=== PATIENT | female | born 1990 | race Caucasian/White ===

== ENCOUNTER 2016-12-19 13:54 | Observation (INO) ==
--- NOTE | 2016-12-19 14:35 | Discharge Summary ---
Date of Encounter: 12/19/16 Time of Encounter: 14:40 - Discharge Diagnosis (1) Back pain affecting in second trimester Priority: Primary Status: Acute Comments: Stretches discussed with patient. [id number] Tylenol for pain. - Discharge Medications Home Medications: Promethazine [Phenergan] 25 mg PO Q8HR PRN #15 tablet 06/29/16 [Rx] Vit Calc,Iron,Folic [ Vitamins] 1 tab PO DAILY 12/19/16 [ History] Allergies/Adverse Reactions: Allergies No Known Allergies Allergy (Verified 12/19/16 14:15) Data - Impressions female presenting with low back pain that radiates down her left leg. Also complaining of left inguinal pain. I do not appreciate any hernias to her left inguinal area. There is no deformity or swelling to her back. She does have point tenderness over her piriformis. The patient has sciatic inflammation. I discussed at length stretches that she can do to help relieve this pain. She has no fevers or calf pain. She states she did have this pain when she was with one of her other children. There is no swelling or deformity to her extremities. Patient cervix is closed on visual exam. She does have normal physiologic discharge at this time. Her nitrazine test was negative. She denies any SROM. She does state she has a normal vaginal discharge. She has no urinary symptoms. Patient denies any trauma to her back. She states her pain has been present for about a month. She cannot remember a specific onset of the pain. - Additional Comments ROS: All systems negative except for stated Patient denies any headache syncope or blurry vision. She denies any shortness of breath or chest pain. She denies any nausea vomiting or diarrhea. She denies any hematochezia or melena. She reports left inguinal pain as well as low back pain that radiates down her left leg. She denies any numbness tingling or swelling to her extremities. She denies any trauma. Date of admission: 12/19/16 13:54 - Patient Status Disposition: Home, Self-Care Condition: Good Overall status at discharge: patient is back to baseline - Discharge Instructions Instructions: Piriformis Syndrome (GEN) Additional Instructions: Please use the stretches that we discussed to help with your lower back pain. He continues Tylenol [id number] as prescribed on the bottle. Please follow-up with your OB at her regular appointment. If you have any questions or concerns or if symptoms return please go to the emergency room. 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 Attestation: Total time spent providing and/or coordinating discharge services: Exam - Constitutional General appearance IM: A&O X 3 - Respiratory Respiratory exam: Present: CTAB - Cardiovascular Cardiovascular exam IM: Present: RRR - GI/Abdominal GI/Abdominal exam IM: normal bowel sounds, soft, no peritoneal signs Incision: normal - Uterine Tone: Firm - Extremities Exam Extremities exam IM: Present: full ROM, normal capillary refill, radial pulses palpable and symetrical - Neurological Exam Neurological exam: alert, oriented X3 - VTE Reasons for not Prescribing Prophylaxis: Treatment not Indicated - Low risk for VTE
[2016-12-19 14:37] LABS: Bilirubin,Urine Negative (Negative); Blood,Urine Negative (Negative); Clarity,Urine Cloudy (Clear); Color,Urine Yellow (Yellow); Glucose,Urine (UA) Normal (Normal); Ketones,Urine Negative (Negative); Leukocyte Esterase,Urine Small (Negative); Nitrite,Urine Negative (Negative); Protein,Urine Negative (Neg-Trace); Specific Gravity,Urine 1.008 (1.010-1.025); Urobilinogen,Urine Normal (Normal)
[2016-12-19 14:40] LABS: Bacteria,Urine Many per hpf (None-Few); Hyaline Casts,Urine None Seen per lpf (None-Few); RBC,Urine 0-3 per hpf (0-3); Squamous Epithelial Cell,Urine Many per lpf (None-Few)
== END 2016-12-19 15:05 | disposition home or self-care (01) ==
LOC: 1NENULAB
PROVIDERS: ADMIT Obstetrics & Gynecology; ATTEND Obstetrics & Gynecology

== ENCOUNTER 2017-01-05 15:42 | Observation (INO) ==
[2017-01-05 16:44] LABS: Basophils % 0.2 %; Eosinophils % 0.2 %; Hematocrit 28.4 % (35.3-44.9); Hemoglobin 9.4 g/dL (11.5-15.4); Immature Granulocytes % 1.3 % (0-4); Lymphocytes # 1.6 K/mcL (0.6-4.6); Lymphocytes % 14.6 %; Mean Corpuscular HGB Conc 33.1 g/dL (31.6-35.5); Mean Corpuscular Volume 84.5 fL (83.0-100.0); Mean Platelet Volume 9.4 fL (9.4-12.4); Monocytes # 0.3 K/mcL (0.0-1.3); Monocytes % 2.8 %; Neutrophils # 8.7 K/mcL (1.6-8.9); Platelet Count 363 K/mcL (140-400); Red Blood Count 3.36 M/mcL (3.82-4.97); Red Cell Distribution Width 12.9 % (11.5-14.5); Segmented Neutrophils % 80.9 %
--- NOTE | 2017-01-05 16:44 | OB/GYN Progress Note ---
Date of Encounter: 01/05/17 Time of Encounter: 16:37 - Assessment and Plan (1) Headache in Current Visit: Yes Status: Acute normotensive,2/4 DTR IVF Tylenol prn PIH labs Urine lab continuous monitoring pt monitoring supportive care re-evaluate in 1 hr Qualifiers: Trimester: second trimester Qualified Code(s): O26.892 - Other specified related conditions, second trimester; R51 - Headache (2) 28 weeks gestation of Current Visit: Yes Status: Acute continuous monitoring pt monitoring supportive care (3) Round ligament pain Current Visit: Yes Status: Acute recommend support belt (4) Back pain affecting Current Visit: Yes Status: Acute recommend support belt recommend continue with stretches Subjective - Subjective Principal diagnosis: headache Interval history: 26 yo F at 28.6weeks ARLETTE 03/24/17. Clemente Lockhart pt. Presents with c/o headache. Fronto-occipital aching headache started monday evening. Pt states headache is an on and off ache that is usually worse in the morning. Headache has not been relieved by Tylenol and was associated with nausea without vomiting this morning. Pt also c/o aching lumbar back pain that has been constant throughout . Pt denies dizziness, change in vision, CP, SOB, palpitation, denies V/D/C. Pt denies loss of fluids, or vaginal bleeding. Antepartum ROS: other (headache) Objective - Exam FHR: auscultation normal FHR comments: 150s Abdomen: Present: normal appearance, soft, gravid. Absent: distention, tenderness Uterus: Present: normal
[2017-01-05 16:54] LABS: Creatinine,Urine 38 mg/dL; Protein/Creatinine Ratio,Urine 0.18 mg/mg (0-0.20)
[2017-01-05 16:57] LABS: Alanine Aminotransferase 7 Units/L (0-55); Aspartate Amino Transferase 17 Units/L (5-34); BUN/Creatinine Ratio 10 (6-26); Blood Urea Nitrogen 6 mg/dL (7-20); Lactate Dehydrogenase 352 Units/L (159-327); Uric Acid 3.3 mg/dL (2.6-6.0); eGFR For African Americans > 60 (> 60); eGFR For Non-African Americans > 60 (> 60)
[2017-01-05] MEDS ORDERED: Acetaminophen 325 MG TABLET PO PRN (17:39)
[2017-01-05] MEDS ORDERED: Ringers Solution, Lactated 500 ML IVC ONE ×2 (17:47→18:02)
[2017-01-05] MEDS ORDERED: Ringers Solution, Lactated 1,000 ML ONE (17:57)
[2017-01-05] MEDS ORDERED: Ringers Solution, Lactated 1,000 ML IVC SCH (18:00)
--- NOTE | 2017-01-05 19:15 | Discharge Summary ---
Date of Encounter: 01/05/17 Time of Encounter: 19:10 - Discharge Diagnosis (1) Headache in Priority: Primary Status: Acute Comments: -Improved with fluids. -Patient states that her intake mostly contains soda -Blood pressure improved 122/64 and baby HR 152 -Patient feels comfortable going home. Plan -Discharge home. Recommend Tylenol -Counseled patient on decreasing/eliminating soda and drinking more water Qualifiers: Trimester: second trimester Qualified Code(s): O26.892 - Other specified related conditions, second trimester; R51 - Headache - Discharge Medications Home Medications: Promethazine [Phenergan] 25 mg PO Q8HR PRN #15 tablet 06/29/16 [Rx] Vit Calc,Iron,Folic [ Vitamins] 1 tab PO DAILY 12/19/16 [ History] Allergies/Adverse Reactions: Allergies No Known Allergies Allergy (Verified 12/19/16 14:15) Data Procedures and tests throughout hospitalization: Laboratory Tests 01/05/17 01/05/17 01/05/17 16:30 16:30 16:35 WBC 10.7 RBC 3.36 L Hgb 9.4 L Hct 28.4 L MCV 84.5 MCH 28.0 MCHC 33.1 RDW 12.9 Plt Count 363 MPV 9.4 Immature Gran % 1.3 Seg Neutrophils % 80.9 Lymphocytes % 14.6 Monocytes % 2.8 Eosinophils % 0.2 Basophils % 0.2 Neutrophils # 8.7 Lymphocytes # 1.6 Monocytes # 0.3 Eosinophils # 0.0 Basophils # 0.0 BUN 6 L Creatinine 0.61 Est GFR ( Amer) > 60 Est GFR (Non-Af Amer) > 60 BUN/Creatinine Ratio 10 Uric Acid 3.3 AST 17 ALT 7 Lactate Dehydrogenase 352 H Urine Creatinine 38 Protein/Creatinin Ratio 0.18 Urine Total Protein < 7 Labs on day of discharge: Labs from last 24 hours 01/05/17 01/05/17 01/05/17 16:35 16:30 16:30 WBC 10.7 RBC 3.36 L Hgb 9.4 L Hct 28.4 L MCV 84.5 MCH 28.0 MCHC 33.1 RDW 12.9 Plt Count 363 MPV 9.4 Immature Gran % 1.3 Seg Neutrophils % 80.9 Lymphocytes % 14.6 Monocytes % 2.8 Eosinophils % 0.2 Basophils % 0.2 Neutrophils # 8.7 Lymphocytes # 1.6 Monocytes # 0.3 Eosinophils # 0.0 Basophils # 0.0 BUN 6 L Creatinine 0.61 Est GFR ( Amer) > 60 Est GFR (Non-Af Amer) > 60 BUN/Creatinine Ratio 10 Uric Acid 3.3 AST 17 ALT 7 Lactate Dehydrogenase 352 H Urine Creatinine 38 Protein/Creatinin Ratio 0.18 Urine Total Protein < 7 - Impressions . LDH mildly elevated, but non concerning. other labs WNL Date of admission: 01/05/17 15:42 Primary care physician: Argelia Gore CNP Discharging clinician: Froilan Estrada Anticipated date of discharge: 01/05/17 - Patient Status Disposition: Home, Self-Care Condition: Good Functional capacity at discharge: independent ambulation Overall status at discharge: patient is progressing back to baseline (Still has mild headache. Improved with fluids. 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 This is normal.) * Lower abdominal cramping or backache that is premenstrual-like feeling. * More than 6 contractions in one hour. * Burning during urination, having to urinate more frequently or pain in your mid-back. * A change in the baby's activity. This could be an increase or decrease in activity. * Severe headache which does not go away with tylenol. * Sudden swelling in the face, hands, arms and/or legs. * Upper abdominal pain - sometimes associated with heartburn or nausea and is not relieved by Maalox, Mylanta or Tums. * Dizziness or blurred vision or visual disturbances (seeing stars/lights). * Kick Counts One hour after a meal, lay down on one side in a quiet place. Count the number of tessie the baby moves during an hour. If less than 6 movements, notify your physician. Diet: *Force fluids - 8-10 tall glasses of fluid per day. May include popsicles and jello. *Limit caffeine - this includes chocolate, coffee, tea, any soft drink containing such as all alix, Roland Yellow and Mountain Dew Follow up with next scheduled appointment. 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 Given fluids and labs drawn. Labs WNL. Her symptoms improved, babies HR improved. Discharged home. Time Attestation: Total time spent providing and/or coordinating discharge services: Time Spent: Less than 30 minutes Exam - Constitutional General appearance IM: A&O X 3 - Respiratory Respiratory exam: Absent: respiratory distress - Cardiovascular Cardiovascular exam IM: Absent: irregular rhythm - GI/Abdominal GI/Abdominal exam IM: soft, no peritoneal signs - Uterine Tone: Firm - Extremities Exam Extremities exam IM: Absent: calf tenderness - Neurological Exam Neurological exam: oriented X3 - Attending Attestation tor garcia md facog
== END 2017-01-05 19:27 | disposition home or self-care (01) ==
LOC: 1NENULAB
PROVIDERS: ADMIT Obstetrics & Gynecology; ATTEND Obstetrics & Gynecology

== ENCOUNTER 2017-01-09 15:46 | Observation (INO) ==
[2017-01-09 16:26] LABS: Bilirubin,Urine Negative (Negative); Blood,Urine Negative (Negative); Clarity,Urine Cloudy (Clear); Color,Urine Yellow (Yellow); Glucose,Urine (UA) Normal (Normal); Ketones,Urine Negative (Negative); Leukocyte Esterase,Urine Moderate (Negative); Nitrite,Urine Negative (Negative); Protein,Urine Negative (Neg-Trace); Specific Gravity,Urine 1.008 (1.010-1.025); Urobilinogen,Urine Normal (Normal)
[2017-01-09 16:28] LABS: Bacteria,Urine Many per hpf (None-Few); Hyaline Casts,Urine None Seen per lpf (None-Few); RBC,Urine 0-3 per hpf (0-3); Squamous Epithelial Cell,Urine Many per lpf (None-Few)
--- NOTE | 2017-01-09 16:51 | OB/GYN Progress Note ---
Date of Encounter: 01/09/17 Time of Encounter: 16:30 - Assessment and Plan (1) Headache Current Visit: Yes Status: Acute -Headache for the last 2 weeks. No changes. Denies blurry vision -Tylenol doesn't help. -Blood pressure now 120's/60's. Baby is reactive with appropriate accelerations. No protein in the urine. Labs WNL -Doubt preeclampsia, infectious cause, induced HTN. -Patient mostly concerned about baby and would like to go home once baby has been evaluated. Plan -PIH Labs. -Continue to monitor baby and mother-BP, HR, Temp. -Consider giving bolus of LR -Will not give narcotics, if patient will take Tylenol, will prescribe. Qualifiers: Headache type: unspecified Headache chronicity pattern: unspecified pattern Intractability: intractable Qualified Code(s): R51 - Headache (2) Edema Current Visit: Yes Status: Acute -No concerning edema. Patient's legs and feet appear to be of normal size. Qualifiers: Edema type: unspecified Qualified Code(s): R60.9 - Edema, unspecified (3) 29 weeks gestation of Current Visit: Yes Status: Acute -Patient of Dr. Lockhart Subjective - Subjective Principal diagnosis: headache and bilateral leg swelling Interval history: 26F, , 29w4d, PMH preeclampsia presents with Headache and bilateral lower leg swelling. Patient seen for headache and high HR. Headache for the last 2 weeks. Described as diffused. Nothing makes it worse or better. Has not changed in characteristic nor quality. Is retractable, non debilitating. Denies blurry vision, neck pain, fever. Is uptodate on her vaccines. Concerning her leg swelling, patient states that began a few days ago. Feels like the bottom of her feet are sore. Denies long travel, trauma, previous history of clots.Denies abdominal pain, CP, SOB, urinary complaints. Denies taking medication, smoking, drinking, drug use. She has decreased her activity lately because of leg swelling. Her biggest concern is her baby, she would like to make sure he is okay. She does feel movements that are unchanged. Patient states that once baby has been evaluated, she would like to go home. Antepartum ROS: new complaints, movement normal, no vaginal bleeding, no contractions Objective - Vital Signs Vital Signs: Intake and Output 01/09/17 01/09/17 01/09/17 07:59 15:59 23:59 Other: Weight 80.2 kg 80.2 kg Patient Weight 01/09/17 23:59 Weight 80.2 kg - Exam FHR: auscultation normal Auscultation: bilateral: normal Abdomen: Present: normal appearance, soft, gravid. Absent: distention, tenderness Uterus: Present: normal, firm Comments: Mild pain with palpation of head throughout. heart RRR, no murmurs. Lungs CTAB. Non surgical abdomen. Arms mild non pitting edema Legs: No erythema, bruising. Legs are equal in size, negative quesada's sign. Dorsalis, tibial, poplitieal pulse equal. Non pitting edema. Legs do not appear grossly swollen. - Labs Labs: Abnormal lab results Urine Clarity Cloudy (Clear) A 01/09/17 16:18 Ur Specific [place] 1.008 (1.010-1.025) L 01/09/17 16:18 Ur Leukocyte Esterase Moderate (Negative) H 01/09/17 16:18 Urine Microscopic WBC 5-15 per hpf (0-3) H 01/09/17 16:18 Ur Squamous Epith Cells Many per lpf (None-Few) H 01/09/17 16:18 Urine Bacteria Many per hpf (None-Few) H 01/09/17 16:18 Ur Culture Indicated? YES (NO) A 01/09/17 16:18
[2017-01-09] MEDS ORDERED: Ringers Solution, Lactated 1,000 ML IVC ONE (18:23)
[2017-01-09 18:58] LABS: Basophils % 0.4 %; Eosinophils # 0.1 K/mcL (0.0-0.6); Eosinophils % 0.5 %; Hematocrit 27.6 % (35.3-44.9); Hemoglobin 9.2 g/dL (11.5-15.4); Immature Granulocytes % 1.3 % (0-4); Mean Corpuscular HGB Conc 33.3 g/dL (31.6-35.5); Mean Corpuscular Hemoglobin 28.2 pg (28.0-33.3); Mean Corpuscular Volume 84.7 fL (83.0-100.0); Mean Platelet Volume 9.6 fL (9.4-12.4); Monocytes # 0.5 K/mcL (0.0-1.3); Neutrophils # 6.8 K/mcL (1.6-8.9); Platelet Count 367 K/mcL (140-400); Red Blood Count 3.26 M/mcL (3.82-4.97); Red Cell Distribution Width 12.9 % (11.5-14.5); Segmented Neutrophils % 71.8 %
[2017-01-09 19:12] LABS: Alanine Aminotransferase 10 Units/L (0-55); Aspartate Amino Transferase 18 Units/L (5-34); BUN/Creatinine Ratio 10 (6-26); Blood Urea Nitrogen 6 mg/dL (7-20); Lactate Dehydrogenase 172 Units/L (159-327); eGFR For African Americans > 60 (> 60); eGFR For Non-African Americans > 60 (> 60)
== END 2017-01-09 19:43 | disposition home or self-care (01) ==
LOC: 1NENULAB
PROVIDERS: ADMIT Student in an Organized Health Care Education/Training Program; ATTEND Student in an Organized Health Care Education/Training Program

== ENCOUNTER → 2017-02-05 19:34 | Observation (INO) ==
--- NOTE | 2017-02-05 17:02 | OB/GYN History & Physical ---
Date of Encounter: 02/05/17 Time of Encounter: 16:55 Assessment and Plan (1) 33 weeks gestation of Current visit: Yes Status: Acute 1. 33wk gestation of 33w 2d NST reactive with baseline HR 145. External TOCO shows sparse irregular contractions and mild intermittent irritability. Patient reports no felt contractions. 2. Vaginal discharge Nitrizine (-) Pooling (-) No reported blood or gush of fluid loss. Clinically suspect physiologic vaginal discharge. 3. Headache Not different than previous headaches. Improved with Tylenol and 500mL IVF. Encouraged patient to continue copious rehydration. Patient noted she has reflux when drinking water and eating. She takes OTC Tums with some relief. Will prescribe OTC pepcid. 4. Decreased movement Spontaneously resolved upon presentation to L&D. Patient reports normal movements. NST is reactive with appx baseline HR 145. After discussing negative nitrizine, no pooling, WISDOM improvement with Tylenol and IVF, encouragement to increase fluid intake, discussion of relaxation of the LES as it relates to her reflux, pepcid prescription, and reassurance for her to return should she have any concerns whatsoever, patient has no additional questions or concerns. Will discharge home with regular follow-up with her primary OB. (2) Vaginal discharge during Current visit: Yes Status: Resolved as above Qualifiers: Trimester: third trimester Qualified Code(s): O26.893 - Other specified related conditions, third trimester; N89.8 - Other specified noninflammatory disorders of vagina (3) Headache Current visit: Yes Status: Acute as above Qualifiers: Headache type: unspecified Headache chronicity pattern: unspecified pattern Intractability: intractable Qualified Code(s): R51 - Headache (4) Decreased movement Current visit: Yes Status: Acute as above History of Present Illness Chief complaint: decreased movement, headache HPI: Ms. Claire is a 26 year old female presents from home with concerns regarding decreased movement, headache, vaginal discharge. 33w 2d gestation Previous complicated by pre-eclampsia. No pre-eclampsia this . Decreased movement noted today; movement was present, but subjectively decreased. Upon arrival to the L&D floor, patient notes movement resumed to her perceived normal. Headache described as dull, diffuse, consistent with her previous headaches. No changes in vision, vertigo, weakness, numbness or tingling. Patient notes a history of headache resolved with IVF; caused by dehydration. Vaginal discharge described as scant. No blood or gush of fluids. Past Med Surg Social Fam HX - Past Medical History Medical history: no medical history Psychiatric history: no psych history - Social History Smoking Status: Never smoker Smokeless Tobacco Status: No Alcohol use: none Drug use: none - Family History Mother Adopted: No Living Status: Still Living Hx Family Cardiac Disorders: No Hx Family Respiratory Disorders: Yes (asthma) Hx Family Cancer: No Hx Family GI Disorders: No Hx Family Endocrine Disorder: No Hx Family Neuromuscular Disorders: No Hx Family Neurologic Disorders: No Hx Family HEENT Disorders: No Hx Family Autoimmune Disorders: No Obstetrical History - Pregnancies : 3 Medications and Allergies Vit Calc,Iron,Folic [ Vitamins] 1 tab PO DAILY 12/19/16 [ History] Famotidine [Pepcid] 20 mg PO BID #40 tablet 02/05/17 [Rx] Tylenol 650 mg 02/05/17 [History] Allergies No Known Allergies Allergy (Verified 02/02/17 16:29) Review of System OB - Constitutional Constitutional ROS IM: headache(s), no fever(s), no malaise, no weakness - Cardiovascular Cardiovascular: lightheadedness, no claudication, no diaphoresis, no dyspnea, no edema - Respiratory Respiratory: no cough, no dyspnea - Gastrointestinal Gastrointestinal: no abdominal pain, no change in bowel habits, no heartburn, no nausea, no vomiting - Genitourinary Genitourinary: no difficulty voiding, no dysuria, no flank pain, no genital lesions, no genital pruritis, no pelvic pain, no urinary hesitancy, no urinary incontinence, no urinary urgency - Muscloskeletal Musculoskeletal: no back pain - Neurological Nerological: headache(s), no abnormal hearing, no disequilibrium, no focal weakness, no frequent falls, no lack of coordination, no loss of vision, no numbness, no paresthesias, no syncope, no vertigo Exam - Constitutional Constitutional: well developed, well nourished, no acute distress - HEENT HEENT: Normocephaly, Mucus Membranes Moist - Neck Neck exam: normal inspection, supple - Lungs Respiratory exam: CTAB - Cardiovascular Cardiovascular exam: RRR, +S1, +S2 - Abdomen Abdomen: Present: bowel sounds normal, gravid, non tender. Absent: guarding noted - Extremities Extremities exam: normal capillary refill, normal inspection, radial pulses palpable and symetrical - Vulva Vulva: bilateral: normal - Vagina Vagina: Present: normal moisture - Cervix Cervix: Absent: discharge Dilation: 0 - Uterus Uterus exam: Present: normal size (gravid) - Anus/Rectum Anus/Rectum: Present: normal perianal skin Results All other labs normal. - VTE Reasons for not Prescribing Prophylaxis: Treatment not Indicated - Low risk for VTE
[~2017-02-05 19:34] MED LIST: Acetaminophen 325 MG TABLET PO ONE; Ringers Solution, Lactated 1,000 ML IVC SCH; Ringers Solution, Lactated 500 ML ONE
== END | disposition home or self-care (01) ==
LOC: 1NENULAB
PROVIDERS: ADMIT Student in an Organized Health Care Education/Training Program; ATTEND Student in an Organized Health Care Education/Training Program

== ENCOUNTER → 2017-02-17 21:00 | Observation (INO) ==
[2017-02-17 20:05] LABS: Bilirubin,Urine Negative (Negative); Blood,Urine Negative (Negative); Clarity,Urine Cloudy (Clear); Color,Urine Yellow (Yellow); Glucose,Urine (UA) Normal (Normal); Ketones,Urine Negative (Negative); Leukocyte Esterase,Urine Small (Negative); Nitrite,Urine Negative (Negative); Protein,Urine Negative (Neg-Trace); Specific Gravity,Urine 1.006 (1.010-1.025); Urobilinogen,Urine Normal (Normal)
[2017-02-17 20:06] LABS: Bacteria,Urine Moderate per hpf (None-Few); Hyaline Casts,Urine None Seen per lpf (None-Few); RBC,Urine 0-3 per hpf (0-3); Squamous Epithelial Cell,Urine Many per lpf (None-Few)
[~2017-02-17 21:00] MED LIST changes: -Acetaminophen 325 MG TABLET PO ONE; +Acetaminophen/Butalbital/CaffeineTABLET PO PRN; -Ringers Solution, Lactated 1,000 ML IVC SCH; -Ringers Solution, Lactated 500 ML ONE
--- NOTE | 2017-02-22 18:40 | OB/GYN Progress Note ---
Date of Encounter: 02/17/17 Time of Encounter: 19:00 - Assessment and Plan (1) 35 weeks gestation of Status: Acute (2) False labor before 37 completed weeks of gestation Status: Acute Patient was seen and examined by RN and sent home with reactive NST. Qualifiers: Trimester: third trimester Qualified Code(s): O47.03 - False labor before 37 completed weeks of gestation, third trimester Objective - Labs Labs: Abnormal lab results Urine Clarity Cloudy (Clear) A 02/17/17 19:50 Ur Specific [place] 1.006 (1.010-1.025) L 02/17/17 19:50 Ur Leukocyte Esterase Small (Negative) H 02/17/17 19:50 Urine Microscopic WBC 5-15 per hpf (0-3) H 02/17/17 19:50 Ur Squamous Epith Cells Many per lpf (None-Few) H 02/17/17 19:50 Urine Bacteria Moderate per hpf (None-Few) H 02/17/17 19:50 Ur Culture Indicated? YES (NO) A 02/17/17 19:50
== END | disposition home or self-care (01) ==
LOC: 1NENULAB
PROVIDERS: ADMIT Obstetrics & Gynecology; ATTEND Obstetrics & Gynecology

== ENCOUNTER → 2017-03-01 12:46 | Observation (INO) ==
[2017-03-01 11:09] LABS: Bilirubin,Urine Negative (Negative); Blood,Urine Negative (Negative); Clarity,Urine Cloudy (Clear); Color,Urine Yellow (Yellow); Glucose,Urine (UA) Normal (Normal); Ketones,Urine Negative (Negative); Leukocyte Esterase,Urine Negative (Negative); Nitrite,Urine Negative (Negative); Protein,Urine Negative (Neg-Trace); Specific Gravity,Urine 1.009 (1.010-1.025); Urobilinogen,Urine Normal (Normal)
--- NOTE | 2017-03-01 11:11 | OB/GYN Progress Note ---
Date of Encounter: 03/01/17 Time of Encounter: 11:08 - Assessment and Plan (1) 36 weeks gestation of Current Visit: Yes Status: Acute Patient states GBS swab collected in office on Monday (2) Back pain affecting in third trimester Current Visit: Yes Status: Acute Cyclical SVE NST Send urine for UA and Reflex culture Subjective - Subjective Principal diagnosis: Back & Vaginal Pain Interval history: Ms Claire arrives to labor and delivery triage with c/o vaginal and back pain x12 hours. She states that the pain comes and goes. She notes positive movement. She denies headache, vision changes, epigastric pain, leaking of fluid, vaginal discharge, vaginal bleeding, and intercourse within the past 48 hours. Antepartum ROS: new complaints, movement normal Objective - Exam FHR: category 1 FHR comments: FHT 150s with moderate variability and 15x15 accels Auscultation: bilateral: normal Abdomen: Present: normal appearance, soft, gravid Uterus: Absent: tenderness Cervical dilation: 1 Cervix effacement: thick station: high Comments: presenting part not palpable. Contractions not present on TOCO. Uterus palpates soft
[2017-03-01 11:12] LABS: RBC,Urine 0-3 per hpf (0-3); Squamous Epithelial Cell,Urine Many per lpf (None-Few); WBC,Urine 0-3 per hpf (0-3)
[2017-03-01 11:13] LABS: Bacteria,Urine Few per hpf (None-Few)
--- NOTE | 2017-03-01 12:46 | Discharge Summary ---
Date of Encounter: 03/01/17 Time of Encounter: 12:49 - Discharge Diagnosis (1) 36 weeks gestation of Priority: Primary Status: Acute Comments: False labor. No cervical change after 1.5 hours. End of discomforts discussed Kick counts and when to return to care discussed. Labor precautions given. Follow up with routine care as scheduled. (2) Back pain affecting in third trimester Priority: Primary Status: Acute Comments: False labor. No cervical change after 1.5 hours. End of discomforts discussed Kick counts and when to return to care discussed. Labor precautions given. Follow up with routine care as scheduled - Discharge Medications Home Medications: Vit Calc,Iron,Folic [ Vitamins] 1 tab PO DAILY 12/19/16 [ History] Tylenol 650 mg PO PRN PRN 02/05/17 [History] Allergies/Adverse Reactions: Allergies No Known Allergies Allergy (Verified 03/01/17 11:12) Data Procedures and tests throughout hospitalization: Laboratory Tests 03/01/17 11:00 Urine Color Yellow Urine Clarity Cloudy A Urine pH 7.0 Ur Specific [place] 1.009 L Urine Protein Negative Urine Glucose (UA) Normal Urine Ketones Negative Urine Blood Negative Urine Nitrite Negative Urine Bilirubin Negative Urine Urobilinogen Normal Ur Leukocyte Esterase Negative Urine Microscopic RBC 0-3 Urine Microscopic WBC 0-3 Ur Squamous Epith Cells Many H Urine Bacteria Few Ur Culture Indicated? NO Labs on day of discharge: Labs from last 24 hours 03/01/17 11:00 Urine Color Yellow Urine Clarity Cloudy A Urine pH 7.0 Ur Specific [place] 1.009 L Urine Protein Negative Urine Glucose (UA) Normal Urine Ketones Negative Urine Blood Negative Urine Nitrite Negative Urine Bilirubin Negative Urine Urobilinogen Normal Ur Leukocyte Esterase Negative Urine Microscopic RBC 0-3 Urine Microscopic WBC 0-3 Ur Squamous Epith Cells Many H Urine Bacteria Few Ur Culture Indicated? 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 FHTs with moderate variability 15x15 accels and baseline of 150. - Extremities Exam Extremities exam IM: Present: normal inspection, radial pulses palpable and symetrical - Neurological Exam Neurological exam: alert, oriented X3, reflexes normal - VTE Reasons for not Prescribing Prophylaxis: Treatment not Indicated - Low risk for VTE
== END | disposition home or self-care (01) ==
LOC: 1NENULAB
PROVIDERS: ADMIT Advanced Practice Midwife; ATTEND Obstetrics & Gynecology

== ENCOUNTER → 2017-03-04 10:59 | Observation (INO) ==
[2017-03-04 10:32] VITALS: BP 130/81
[2017-03-04 10:38] LABS: Basophils % 0.2 %; Eosinophils % 0.4 %; Hematocrit 28.3 % (35.3-44.9); Lymphocytes # 1.6 K/mcL (0.6-4.6); Lymphocytes % 17.7 %; Mean Corpuscular HGB Conc 31.8 g/dL (31.6-35.5); Mean Corpuscular Hemoglobin 25.4 pg (28.0-33.3); Mean Corpuscular Volume 79.9 fL (83.0-100.0); Mean Platelet Volume 9.3 fL (9.4-12.4); Monocytes # 0.4 K/mcL (0.0-1.3); Monocytes % 4.4 %; Platelet Count 338 K/mcL (140-400); Red Blood Count 3.54 M/mcL (3.82-4.97); Red Cell Distribution Width 13.6 % (11.5-14.5); Segmented Neutrophils % 76.3 %
[2017-03-04 10:48] LABS: Creatinine,Urine 37 mg/dL; Protein/Creatinine Ratio,Urine 0.19 mg/mg (0-0.20)
[2017-03-04 10:51] LABS: Alanine Aminotransferase 8 Units/L (0-55); Aspartate Amino Transferase 14 Units/L (5-34); BUN/Creatinine Ratio 6 (6-26); Blood Urea Nitrogen 4 mg/dL (7-20); Lactate Dehydrogenase 179 Units/L (159-327); Uric Acid 4.8 mg/dL (2.6-6.0); eGFR For African Americans > 60 (> 60); eGFR For Non-African Americans > 60 (> 60)
--- NOTE | 2017-03-04 11:00 | OB/GYN Progress Note ---
Date of Encounter: 03/04/17 Time of Encounter: 10:57 - Assessment and Plan (1) 37 weeks gestation of Current Visit: Yes Status: Acute NST - reactive Follow up in office with Dr Lockhart as scheduled this week for routine care Kick counts, labor precautions, and when to return to care education given. (2) Headache in Current Visit: No Status: Acute Mildly elevated blood cyclical blood pressures in labor and delivery. PIH labs negative for PIH Patient may have tylenol for headache at home. Patient to follow up in office with Dr Lockhart as previously scheduled with routine care Patient given education on kick counts, when to return to care, and labor precautions Plan of care discussed with Dr Bolivar Qualifiers: Trimester: third trimester Qualified Code(s): O26.893 - Other specified related conditions, third trimester; R51 - Headache Subjective - Subjective Principal diagnosis: Headache, elevated blood pressure at home, pelvic pain Interval history: Ms Claire a female at 37 weeks 1 day arrives to L&D triage with c/o pedal edema, increased blood pressure at home, headache, and pelvic pain. She states positive movement and denies vision changes, epigastric pain, leaking of fluid, vaginal bleeding, vaginal discharge, fever, nausea, vomiting, and diarrhea. Antepartum ROS: movement normal Objective - Vital Signs Vital Signs: Vital Signs Temp Pulse Resp BP 03/04/17 10:19 98.1 F 88 16 130/81 Intake and Output 03/03/17 03/04/17 03/04/17 23:59 07:59 15:59 Other: Weight 83.9 kg Patient Weight 03/04/17 23:59 Weight 83.9 kg - Exam FHR: category 1 FHR comments: FHR 150's with moderate variability and 15x15 accels. TOCO: Irregular contractions noted on monitor; uterus palpates soft between contractions, contractions palpate mild. Auscultation: bilateral: normal Abdomen: Present: normal appearance, soft, gravid Uterus: Present: normal. Absent: firm, tenderness Comments: Cervical exam deferred. Trace edema noted to bilateral lower extremities. Patellar reflexes 2+, no clonus noted. - Labs Labs: Abnormal lab results RBC 3.54 M/mcL (3.82-4.97) L 03/04/17 10:30 Hgb 9.0 g/dL (11.5-15.4) L 03/04/17 10:30 Hct 28.3 % (35.3-44.9) L 03/04/17 10:30 MCV 79.9 fL (83.0-100.0) L 03/04/17 10:30 MCH 25.4 pg (28.0-33.3) L 03/04/17 10:30 MPV 9.3 fL (9.4-12.4) L 03/04/17 10:30 BUN 4 mg/dL (7-20) L 03/04/17 10:30
== END | disposition home or self-care (01) ==
LOC: 1NENULAB
PROVIDERS: ADMIT Obstetrics & Gynecology; ATTEND Obstetrics & Gynecology

== ENCOUNTER → 2017-03-07 12:15 | Observation (INO) ==
--- NOTE | 2017-03-07 10:32 | Discharge Summary ---
Date of Encounter: 03/07/17 Time of Encounter: 10:43 - Discharge Diagnosis (1) 37 weeks gestation of Priority: Primary Status: Acute Comments: Reactive NST Discharge home with labor precautions and kick counts Follow - up with routine care as scheduled with Dr Lockhart POC per consult with Dr Bolivar (2) Vaginal discharge during Priority: Primary Status: Acute Comments: Patient arrives to L&D with c/o large gush of fluid that soaks her underwear, pants and lands on floor this morning while doing dishes. leaking of fluid has stopped. She was checked by Dr Lockhart at her appointment yesterday in the office. She denies intercourse in the past 48 hours. She states positive movement and denies contractions. She denies headache, epigastric pain, and visual disturbances. Discharge home with medication for bacterial vaginosis Follow up in office with Dr Lockhart as previously scheduled. Education provided on BV, rupture of membranes, when to seek care, kick counts, and labor precautions Qualifiers: Trimester: third trimester Qualified Code(s): O26.893 - Other specified related conditions, third trimester; N89.8 - Other specified noninflammatory disorders of vagina - Discharge Medications Home Medications: Vit Calc,Iron,Folic [ Vitamins] 1 tab PO DAILY 12/19/16 [ History] Tylenol 650 mg PO PRN PRN 02/05/17 [History] Allergies/Adverse Reactions: Allergies No Known Allergies Allergy (Verified 03/01/17 11:12) Date of admission: 03/07/17 09:44 Primary care physician: Argelia Gore CNP Discharging clinician: Valerie Boyd - Patient Status Disposition: Home, Self-Care Condition: Good Functional capacity at discharge: independent ambulation Overall status at discharge: patient is back to baseline - Discharge Instructions Follow Up With: Argelia Gore CNP [Primary Care Provider] - Ganga Lockhart MD [Partnered Physician] - - Diet and Activity Activity: resume usual activities as tolerated Diet: regular diet 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 No contractions on monitor or through palpation. Size appropriate for dates. Sterile spec exam: negative for pooling, negative nitrazine, and negative for ferning; diplococci and clue cells present on slide thin greyish/white discharge present in posterior fornix. Cervix visually closed. Digital exam not done. - Extremities Exam Extremities exam IM: Present: normal capillary refill, normal inspection, radial pulses palpable and symetrical - Neurological Exam Neurological exam: alert, oriented X3, reflexes normal - Other Additional findings: FHTs 160 with 15x15 accels. no contractions present on toco or with palpation. uterus palpates soft. - VTE Reasons for not Prescribing Prophylaxis: Treatment not Indicated - Low risk for VTE
[2017-03-07 10:35] VITALS: BP 145/73
[~2017-03-07 12:15] MED LIST changes: -Acetaminophen/Butalbital/CaffeineTABLET PO PRN; +metroNIDAZOLE 500 MG TABLET PO SCH
== END | disposition home or self-care (01) ==
LOC: 1NENULAB
PROVIDERS: ADMIT Advanced Practice Midwife; ATTEND Obstetrics & Gynecology

== ENCOUNTER → 2017-03-12 22:44 | Observation (INO) ==
--- NOTE | 2017-03-12 19:58 | OB/GYN History & Physical ---
Date of Encounter: 03/12/17 Time of Encounter: 19:55 Assessment and Plan (1) 38 weeks gestation of Current visit: Yes Status: Acute 38 weeks 2 days reactive NST, category 1 baseline 150 with moderate variability and 15x15 accels uterine contractions on monitor q3-4 minutes SVE 3cm/75%, will recheck in another 2 hours History of Present Illness Chief complaint: labor evaluation HPI: Ms. Claire is a 26 year old female 38 weeks 2 days presents for labor evaluation. Reports over the past week she has been experiencing sharp pains worse today in the lower back. Reports pain is so intense she is unable to walk. Increase in frequency over the past few hours. Denies contraction, vaginal bleeding or leakage of fluid. Denies nausea or vomiting. No injury or trauma to back. She was seen and evaluated 03/07 with concern for large gush of fluid but was determined no rupture of membranes. Denies any fever, headache, visual changes, epigastric/abdominal pain. Denies any urinary symptoms. Currently is taking Flagyl for recent BV diagnosis. Her OB is Dr. Lockhart. No complications with to date. Cervix reported 2-3cm dilated last week in the office, scheduled to see him tomorrow. GBS negative, HBV nonreactive, Rubella immune, and other serologies reviewed and are negative. Her blood type is B positive. Past Med Surg Social Fam HX - Past Medical History Medical history: no medical history Psychiatric history: no psych history - Social History Smoking Status: Never smoker Smokeless Tobacco Status: No Alcohol use: none Drug use: none - Family History Mother Adopted: No Family Member Ethnicity: Non- Living Status: Still Living Hx Family Cardiac Disorders: No Hx Family Respiratory Disorders: Yes (Asthma) Hx Family Cancer: No Hx Family GI Disorders: No Hx Family Endocrine Disorder: No Hx Family Neuromuscular Disorders: No Hx Family Neurologic Disorders: No Hx Family HEENT Disorders: No Hx Family Autoimmune Disorders: No Obstetrical History - Pregnancies : 3 Para: 2 Term: 2 : 0 Ab's: 0 Livin Medications and Allergies Amoxicillin Susp [Amoxil] 11 ml PO BID #220 ml 03/11/17 [Rx] Famotidine [Heartburn Prevention] 20 mg PO DAILY 03/11/17 [History] HydrOXYzine Pamoate [Vistaril] 25 mg PO DAILY 03/11/17 [History] MetroNIDAZOLE [Flagyl] 500 mg PO BID 03/11/17 [History] Allergies No Known Allergies Allergy (Verified 03/12/17 18:55) Review of System OB All systems PM: reviewed and no additional remarkable complaints except as stated Exam - Constitutional Constitutional: well developed, well nourished, no acute distress, average body habitus - HEENT HEENT: EOMI, Normocephaly, Mucus Membranes Moist - Neck Neck exam: full ROM, normal inspection, supple - Lungs Respiratory exam: CTAB - Cardiovascular Cardiovascular exam: RRR, +S1, +S2 - Abdomen Abdomen: Present: bowel sounds normal, gravid, non tender - Extremities Extremities exam: full ROM, normal capillary refill, pedal edema (mild), warm Deep Tendon Reflex Grade: 2+ Normal - Cervix Dilation: 3 (per RN) Effacement: 75 (per RN) - Uterus Uterus exam: Present: normal size Results All other labs normal. - VTE Reasons for not Prescribing Prophylaxis: Treatment not Indicated - Low risk for VTE
--- NOTE | 2017-03-12 22:46 | Discharge Summary ---
Date of Encounter: 03/12/17 Time of Encounter: 22:45 - Discharge Diagnosis (1) 38 weeks gestation of Priority: Primary Status: Acute Comments: 38 weeks 5 days presents with sharp pains, ongoing for past week worse today denies large gush of fluids, vaginal bleeding, or contractions reactive NST, category 1 with moderate variability and 15x15 accels stable for discharge home recommend to keep scheduled appointment with Dr. Lockhart strict return precautions given (2) False labor Priority: Primary Status: Acute Comments: 2 hour cervical re-check, no change 3cm/75% - Discharge Medications Home Medications: Amoxicillin Susp [Amoxil] 11 ml PO BID #220 ml 03/11/17 [Rx] Famotidine [Heartburn Prevention] 20 mg PO DAILY 03/11/17 [History] HydrOXYzine Pamoate [Vistaril] 25 mg PO DAILY 03/11/17 [History] MetroNIDAZOLE [Flagyl] 500 mg PO BID 03/11/17 [History] Allergies/Adverse Reactions: Allergies No Known Allergies Allergy (Verified 03/12/17 18:55) Date of admission: 03/12/17 18:40 Discharging clinician: Alex Eddy Anticipated date of discharge: 03/12/17 - Patient Status Disposition: Home, Self-Care Condition: Good Functional capacity at discharge: independent ambulation Overall status at discharge: patient is back to baseline - Discharge Instructions Additional Instructions: LABOR AND DELIVERY DISCHARGE INSTRUCTIONS Signs and Symptoms to be Reported to your Doctor Immediately: * Sudden gush, continuous or intermittent lead of fluid from vagina (note the time of gush and color of fluid) * Onset of bright red vaginal bleeding with or without pain (if you had a vaginal exam during this visit you may notice some dark red spotting. This is normal.) * Contractions that are 5 minutes apart (from the beginning of one contraction to the beginning of the next) and last 45-60 seonds; contractions that you can no longer walk, talk or laugh through. * A change in the baby's activity. This could be an increase or decrease in activity. * Severe headache which does not go away with tylenol. * Sudden swelling in the face, hands, arms and/or legs. * Upper abdominal pain - sometimes associated with heartburn or nausea and is not relieved by Maalox, Mylanta or Tums. * Kick Counts __ One hour after a meal, lay down on one side in a quiet place. Count the number of time the baby moves during an hour. 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 Claire is a 26 year old female 38 weeks 2 days presents for labor evaluation. Reports over the past week she has been experiencing sharp pains worse today in the lower back. Reports pain is so intense she is unable to walk. Increase in frequency over the past few hours. Denies contraction, vaginal bleeding or leakage of fluid. Denies nausea or vomiting. No injury or trauma to back. She was seen and evaluated 03/07 with concern for large gush of fluid but was determined no rupture of membranes. Denies any fever, headache, visual changes, epigastric/abdominal pain. Denies any urinary symptoms. Currently is taking Flagyl for recent BV diagnosis. Her OB is Dr. Lockhart. No complications with to date. Cervix reported 2-3cm dilated last week in the office, scheduled to see him tomorrow. GBS negative, HBV nonreactive, Rubella immune, and other serologies reviewed and are negative. Her blood type is B positive. Recheck of cervix 2 hours remains unchanged. Time Attestation: Total time spent providing and/or coordinating discharge services: Time Spent: Less than 30 minutes Exam - Constitutional General appearance IM: cooperative, A&O X 3, no acute distress - Respiratory Respiratory exam: Present: CTAB - Cardiovascular Cardiovascular exam IM: Present: RRR, +S1, +S2 - GI/Abdominal GI/Abdominal exam IM: normal bowel sounds, no peritoneal signs - External exam: normal external exam - Extremities Exam Extremities exam IM: Present: full ROM, normal capillary refill, pedal edema. Absent: tenderness - Neurological Exam Neurological exam: alert, normal gait, no focal deficits, strengths equal and symetr throughout - Psychiatric Additional comments: normal mood and affect - Other Additional findings: FHR reactive, category 1 with moderate variability and 15x15 accels - VTE Reasons for not Prescribing Prophylaxis: Treatment not Indicated - Low risk for VTE
== END | disposition home or self-care (01) ==
LOC: 1NENULAB

== ENCOUNTER → 2017-03-14 17:50 | Observation (INO) ==
--- NOTE | 2017-03-14 16:09 | OB/GYN History & Physical ---
Date of Encounter: 03/14/17 Time of Encounter: 16:03 Assessment and Plan (1) 38 weeks gestation of Current visit: Yes Status: Acute 38 weeks 4 days SVE 3-4 cm dilation will recheck abbie jaramillo RN, if unchanged plan to discharge home reactive NST, category 1 baseline 155 with moderate variability and 15x15 accels History of Present Illness Chief complaint: labor evaluation HPI: Ms. Claire is a 26 year old female 38 weeks 4 days presents for labor evaluation. Reports lower abdominal/suprapubic pressure as well as increased lower extremity swelling. This has been ongoing for the past 48 hours but worse today. She woke up this morning and was unable to walk to the restroom because he legs are crampy and achey mostly in the anterior thigh and shins. She was seen and evaluated in the office by her OB Dr. Lockhart and reportedly was 3-4 cm dilated and 80%. She is scheduled for induction on Monday03/17/2017. Reports some irregular contractions yesterday and some today but unable to quantify intervals.Denies vaginal bleeding or leakage of fluid. Reports some nausea yesterday after her office visit and some today after a bag of filipino fries. Denies any vomiting. No injury or trauma to back. Denies any fever, headache, visual changes, epigastric/abdominal pain. Denies any urinary symptoms. No complications with to date. GBS negative, HBV nonreactive, Rubella immune, and other serologies reviewed and are negative. Her blood type is B positive. Past Med Surg Social Fam HX - Past Medical History Medical history: no medical history Psychiatric history: no psych history - Social History Smoking Status: Never smoker Smokeless Tobacco Status: No Alcohol use: none Drug use: none - Family History Mother Adopted: No Family Member Ethnicity: Non- Living Status: Still Living Hx Family Cardiac Disorders: No Hx Family Respiratory Disorders: Yes (Asthma) Hx Family Cancer: No Hx Family GI Disorders: No Hx Family Endocrine Disorder: No Hx Family Neuromuscular Disorders: No Hx Family Neurologic Disorders: No Hx Family HEENT Disorders: No Hx Family Autoimmune Disorders: No Obstetrical History - Pregnancies : 3 Para: 2 Term: 2 : 0 Ab's: 0 Livin Medications and Allergies Amoxicillin Susp [Amoxil] 11 ml PO BID #220 ml 03/11/17 [Rx] Famotidine [Heartburn Prevention] 20 mg PO DAILY 03/11/17 [History] HydrOXYzine Pamoate [Vistaril] 25 mg PO DAILY 03/11/17 [History] MetroNIDAZOLE [Flagyl] 500 mg PO BID 03/11/17 [History] Allergies No Known Allergies Allergy (Verified 03/12/17 18:55) Review of System OB All systems PM: reviewed and no additional remarkable complaints except as stated Exam - Constitutional Constitutional: well developed, well nourished, no acute distress - HEENT HEENT: EOMI, Normocephaly, Mucus Membranes Moist - Neck Neck exam: full ROM, normal inspection - Lungs Respiratory exam: CTAB - Cardiovascular Cardiovascular exam: RRR, +S1, +S2 - Abdomen Abdomen: Present: bowel sounds normal, gravid, non tender - Extremities Extremities exam: full ROM, normal capillary refill, pedal edema (mild, +1 symmetrical bilaterally) Deep Tendon Reflex Grade: 2+ Normal - Cervix Dilation: 3 (per RN) - Uterus Uterus exam: Present: normal size - Comments Comments: reactive NST, category 1 baseline 155 with moderate variability and 15x15 accels Results All other labs normal. - VTE Reasons for not Prescribing Prophylaxis: Treatment not Indicated - Low risk for VTE
--- NOTE | 2017-03-14 17:57 | Discharge Summary ---
Date of Encounter: 03/14/17 Time of Encounter: 17:56 - Discharge Diagnosis (1) 38 weeks gestation of Priority: Primary Status: Acute Comments: 38 weeks 4 days no cervical changes reactive NST, category 1 baseline 155 with moderate variability and 15x15 accels patient is ambulatory without any difficulty stable for discharge home scheduled IOL 03/17/2017 strict return precautions discussed, agrees to return sooner if needed (2) False labor Priority: Primary Status: Acute Comments: repeat SVE, no cervical changes remains 3 cm dilation - Discharge Medications Home Medications: Amoxicillin Susp [Amoxil] 11 ml PO BID #220 ml 03/11/17 [Rx] Famotidine [Heartburn Prevention] 20 mg PO DAILY 03/11/17 [History] HydrOXYzine Pamoate [Vistaril] 25 mg PO DAILY 03/11/17 [History] MetroNIDAZOLE [Flagyl] 500 mg PO BID 03/11/17 [History] Allergies/Adverse Reactions: Allergies No Known Allergies Allergy (Verified 03/12/17 18:55) Date of admission: 03/14/17 15:41 Primary care physician: Argelia Gore CNP Discharging clinician: Alex Eddy Anticipated date of discharge: 03/14/17 - Patient Status Disposition: Home, Self-Care Condition: Good Functional capacity at discharge: independent ambulation Overall status at discharge: patient is back to baseline - Discharge Instructions Follow Up With: Argleia Gore CNP [Primary Care Provider] - Additional Instructions: LABOR AND DELIVERY DISCHARGE INSTRUCTIONS Signs and Symptoms to be Reported to your Doctor Immediately: * Sudden gush, continuous or intermittent lead of fluid from vagina (note the time of gush and color of fluid) * Onset of bright red vaginal bleeding with or without pain (if you had a vaginal exam during this visit you may notice some dark red spotting. This is normal.) * Contractions that are 5 minutes apart (from the beginning of one contraction to the beginning of the next) and last 45-60 seonds; contractions that you can no longer walk, talk or laugh through. * A change in the baby's activity. This could be an increase or decrease in activity. * Severe headache which does not go away with tylenol. * Sudden swelling in the face, hands, arms and/or legs. * Upper abdominal pain - sometimes associated with heartburn or nausea and is not relieved by Maalox, Mylanta or Tums. * Kick Counts __ One hour after a meal, lay down on one side in a quiet place. Count the number of time the baby moves during an hour. 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) Hospital course: no cervical changes after recheck remains 3 cm dilation scheduled IOL 03/17/2017 Time Attestation: Total time spent providing and/or coordinating discharge services: Time Spent: Less than 30 minutes Exam - Constitutional General appearance IM: cooperative, A&O X 3, no acute distress, answers questions appropriately - Respiratory Respiratory exam: Present: CTAB - Cardiovascular Cardiovascular exam IM: Present: RRR, +S1, +S2 - GI/Abdominal GI/Abdominal exam IM: normal bowel sounds - Uterine Tone: Firm - Extremities Exam Extremities exam IM: Present: normal capillary refill, normal inspection, pedal edema (mild) - Neurological Exam Neurological exam: alert, normal gait, oriented X3, no focal deficits, strengths equal and symetr throughout - Psychiatric Additional comments: normal mood and affect - Other Additional findings: reactive NST, category 1 baseline 155 with moderate variability and 15x15 accels - VTE Reasons for not Prescribing Prophylaxis: Treatment not Indicated - Low risk for VTE
== END | disposition home or self-care (01) ==
LOC: 1NENULAB
PROVIDERS: ADMIT Student in an Organized Health Care Education/Training Program; ATTEND Student in an Organized Health Care Education/Training Program

== ENCOUNTER → 2017-03-16 00:49 | Observation (INO) ==
--- NOTE | 2017-03-16 00:08 | Discharge Summary ---
Date of Encounter: 03/16/17 Time of Encounter: 00:19 - Discharge Diagnosis (1) Vaginal discharge during Priority: Primary Status: Acute Comments: Patient states that she has been having gushes of clear odorless liquid for several hours. States that she is having a moderate amount of pain with irregular contractions. Per RN nitrazine negative, negative for pooling No change noted with serial cervical exams. Patient to be discharged home with labor precautions and kick counts. Induction of labor previously scheduled for Friday March 17, 2017. Qualifiers: Trimester: third trimester Qualified Code(s): O26.893 - Other specified related conditions, third trimester; N89.8 - Other specified noninflammatory disorders of vagina (2) 38 weeks gestation of Priority: Secondary Status: Acute Comments: Patient states active fetus. Denies headache, vision changes, and epigastric pain States irregular contractions with vaginal pressure. (3) NST (non-stress test) reactive Priority: Secondary Status: Acute Comments: Reactive NST Category I FHTs 145 with moderate variability and 15 x 15 accels. TOCO contractions every 3-4 minutes 45 seconds in length. (4) False labor after 37 completed weeks of gestation Priority: Secondary Status: Acute Comments: No cervical change with serial SVEs and contractions. 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
== END | disposition home or self-care (01) ==
LOC: 1NENULAB
PROVIDERS: ADMIT Obstetrics & Gynecology; ATTEND Obstetrics & Gynecology

== ENCOUNTER 2017-03-17 08:00 | Inpatient (IN) ==
[2017-03-17] MEDS ORDERED: miSOPROStol 25 MCG TABLET PO ONE (09:13)
[2017-03-17] MEDS ORDERED: Ringers Solution, Lactated 1,000 ML IVC SCH (09:15)
[2017-03-17 09:28] LABS: Basophils % 0.3 %; Eosinophils # 0.1 K/mcL (0.0-0.6); Eosinophils % 0.6 %; Hematocrit 28.5 % (35.3-44.9); Hemoglobin 9.1 g/dL (11.5-15.4); Immature Granulocytes % 1.1 % (0-4); Lymphocytes # 1.9 K/mcL (0.6-4.6); Lymphocytes % 21.8 %; Mean Corpuscular HGB Conc 31.9 g/dL (31.6-35.5); Mean Corpuscular Hemoglobin 24.8 pg (28.0-33.3); Mean Corpuscular Volume 77.7 fL (83.0-100.0); Mean Platelet Volume 9.6 fL (9.4-12.4); Monocytes # 0.5 K/mcL (0.0-1.3); Monocytes % 5.8 %; Neutrophils # 6.2 K/mcL (1.6-8.9); Platelet Count 375 K/mcL (140-400); Red Blood Count 3.67 M/mcL (3.82-4.97); Red Cell Distribution Width 14.2 % (11.5-14.5); Segmented Neutrophils % 70.4 %
--- NOTE | 2017-03-17 11:19 | OB/GYN History & Physical ---
Date of Encounter: 03/17/17 Time of Encounter: 11:15 Assessment and Plan (1) Elective induction of labor planned Current visit: Yes Status: Acute Induction of labor with Cytotec (initial dose 50mcg PO) Epidural and Nubain if desired Encourage ambulation and use of birthing ball Regular diet Anticipate (2) 39 weeks gestation of Current visit: Yes Status: Acute History of Present Illness Chief complaint: Labor induction HPI: Ms. Claire is a 26 year old female 39 weeks presents for induction of labor. She states she had an ear infection last weekend and was treated with oral amoxicillin with improvement in her symptoms. She denies smoking, drinking , or other substance abuse during this . Denies vaginal bleeding or leakage of fluid. States she has some intermittent nausea, but denies any vomiting. Denies any fever, headache, visual changes, epigastric/abdominal pain. Denies any urinary symptoms. No complications with to date. GBS negative, HBV nonreactive, Rubella immune, varicella positive and other serologies reviewed and are negative. Her blood type is B positive. Past Med Surg Social Fam HX - Past Medical History Medical history: no medical history Psychiatric history: no psych history - Past Surgical History Surgical History: other - Social History Smoking Status: Never smoker Smokeless Tobacco Status: No Alcohol use: none Drug use: none - Family History Mother Adopted: No Family Member Ethnicity: Non- Living Status: Still Living Hx Family Cardiac Disorders: No Hx Family Respiratory Disorders: Yes (asthma) Hx Family Cancer: No Hx Family GI Disorders: No Hx Family Endocrine Disorder: No Hx Family Neuromuscular Disorders: No Hx Family Neurologic Disorders: No Hx Family HEENT Disorders: No Hx Family Autoimmune Disorders: No Obstetrical History - Pregnancies : 3 Medications and Allergies Amoxicillin Susp [Amoxil] 11 ml PO BID #220 ml 03/11/17 [Rx] Famotidine [Heartburn Prevention] 20 mg PO DAILY 03/11/17 [History] HydrOXYzine Pamoate [Vistaril] 25 mg PO DAILY 03/11/17 [History] Allergies No Known Allergies Allergy (Verified 03/15/17 23:15) Review of System OB All systems PM: reviewed and no additional remarkable complaints except as stated Exam - Constitutional Constitutional: well developed, well nourished, no acute distress - HEENT HEENT: Normocephaly, Mucus Membranes Moist - Neck Neck exam: normal inspection - Cardiovascular Cardiovascular exam: RRR, +S1, +S2 - Abdomen Abdomen: Present: bowel sounds normal, gravid - Extremities Extremities exam: normal capillary refill, pedal edema (trace) Results Result Diagrams: 03/17/17 09:07 Abnormal lab results RBC 3.67 M/mcL (3.82-4.97) L 03/17/17 09:07 Hgb 9.1 g/dL (11.5-15.4) L 03/17/17 09:07 Hct 28.5 % (35.3-44.9) L 03/17/17 09:07 MCV 77.7 fL (83.0-100.0) L 03/17/17 09:07 MCH 24.8 pg (28.0-33.3) L 03/17/17 09:07 All other labs normal.
--- NOTE | 2017-03-17 12:50 | Anesthesia Evaluation PreOp ---
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: Denies Any Significant HX Other Medical History: Thyroid Anesthesia History: No Prior Anesthetic Complications, Past Anesthesia (wisdom teeth extraction) : Yes Alcohol Use: none Drug use: none Medications and Allergies Amoxicillin Susp [Amoxil] 11 ml PO BID #220 ml 03/11/17 [Rx] Famotidine [Heartburn Prevention] 20 mg PO DAILY 03/11/17 [History] HydrOXYzine Pamoate [Vistaril] 25 mg PO DAILY 03/11/17 [History] Allergies No Known Allergies Allergy (Verified 03/15/17 23:15) - Meds/Allergy Pre-op Review Medications Reviewed: Yes Allergies Reviewed: Yes Beta Blockers on Current Med List: No Anesthesia Results - Labs 03/17/17 09:07 Anesthesia Exam BP 134/80 P 74 T 97.8 R 16 Spo2 98 Height: 5'6" Weight: 187 NPO (# of Hours): 4 Pain Scale: 4 Pain Scale Used: Numeric (1 - 10) - HEENT Pupil (Motor): Pupils equal Mallampati: II Teeth: Normal Oral Opening: Greater than 3 - GEOGRAPHY INSTRUCTOR GEOGRAPHY INSTRUCTOR Motor: Normal RUE, Normal LUE, Normal RLE, Normal LLE, Normal Face GEOGRAPHY INSTRUCTOR Sensory: Normal: RUE, LUE, RLE, LLE, Face - Cardiac Rhythm: Regular Murmur: None JVD: No Carotid Bruit: No - Pulmonary Breath Sounds: bilateral Clear Respiratory Effort: Symmetrical Anesthesia Assess/Plan ASA Score: 2 Modified Lily Scale for Level of Consciousness: Cooperative, oriented, and tranquil Anesthetic Plan: Regional Autologous Blood: No Monitoring Plan: Standard Monitors Recovery Plan: PACU
[2017-03-17] MEDS ORDERED: Bupivacaine-MPF 0.25% 10 ML VIAL EP ONE (12:54)
[2017-03-17] MEDS ORDERED: Naloxone 0.4 MG/ML INJ IVP PRN (12:54)
[2017-03-17] MEDS ORDERED: EPHEDrine 50 MG/ML VIAL IVP PRN (12:54)
[2017-03-17] MEDS ORDERED: *HR* FentaNYL (PF) 100 MCG/2 ML VIAL EP ONE (12:54)
[2017-03-17] MEDS ORDERED: Ondansetron 4 MG/2 ML VIAL IVP PRN ×2 (12:54→13:56)
[2017-03-17] MEDS ORDERED: Bupivacaine-MPF 0.25% 10 ML VIAL ONE (13:00)
[2017-03-17] MEDS ORDERED: Epidural Premix (fent/bupiv) 110 ML EP ONE (13:00)
[2017-03-17] MEDS ORDERED: Epidural Premix (fent/bupiv) 110 ML EP SCH (13:00)
[2017-03-17] MEDS ORDERED: *HR* FentaNYL (PF) 100 MCG/2 ML VIAL ONE (13:00)
--- NOTE | 2017-03-17 13:08 | Anesthesia Procedures ---
Date of Encounter: 03/17/17 Time of Encounter: 13:06 Procedures: Anesthesia - Epidural/Spinal Patient ID/Chart reviewed: Yes Patient examined: Yes OB Eval: Gestational age: 39 OB Eval: : 3 OB Eval: Hx Para: 2 OB Eval: Dilated at (cm): 4 OB Eval: Contractions: Non-stressed pattern Consent Obtained: Yes Supplemental Oxygen: None/Room Air Site Prep: Aseptic Technique, Sterile prep and drape, Povidone-Iodine 1% Patient position: upright Local Anesthetic: Lidocaine 1% Amount of Local Anesthetic used: 3 Touhy Needle Gauge: 18 Touhy Needle Depth (cm): 5 Catheter Depth at Skin (cm): 14 Test Dose (1.5% Lido + Epi): Volume given (mls): 3 Test Dose Result: Negative Loading Dose: 0.25% Marcaine (mls): 8 Loading Dose: Fentanyl (mcg): 100 Loading Dose Administered: Thru Catheter Infusion Med: 0.125% Bupivacaine w/ 2 mcg/ml Fentanyl Infusion Rate (mls/hr): [address]: Tegaderm, Tape Interspace Used: L4-L5 Loss of Resistance (BOBBI): Yes Blood: No CSF: No Paresthesia: No Vitals + FHT's: 3 Vital Signs Time 1310 1315 1320 BP 131/92 140/96 138/88 Pulse 80 90 98 FHTs 150 150 150
--- NOTE | 2017-03-17 14:00 | OB Labor Progress Note ---
Date of Encounter: 03/17/17 Time of Encounter: 13:57 Labor Progress Note - Subjective Subjective: Pt comfortable with epidural. She does report some nausea at this time. - Cervix Cervix: 4/90/-1 - Heart Tones Heart Tones: Category I - [place]: 2-4 minutes - Interventions Interventions: AROM for moderate amount clear fluid. IUPC placed. - Plan Plan: Continue to monitor. Anticipate .
[2017-03-17] MEDS ORDERED: Oxytocin 20 units/ LR 1000 mL 20 UNIT/1,000 ML BAG IVC ONE (16:11)
--- NOTE | 2017-03-17 16:30 | OB/GYN Procedure Note ---
Delivery - Delivery Date: 03/17/17 Provider: Héctor Bolivar Intrapartum events: none Delivery induction: misoprostol Delivery monitor: external FHT, internal FHT Anesthesia: epidural Estimated Blood Loss: 100 - (s) Infant A Delivery Date: 03/17/17 Infant Delivery Time: 16:13 Presentation: vertex Position: DOMINIC Route of delivery: Gender: Male Viability: Viable Pounds: 9 Ounces: 9 at 1 minute: 7 at 5 mins: 3 Shoulder Dystocia: not encountered Specimens collected: cord blood Placenta: spontaneous Cord: 3 umbilical vessels - Repair Episiotomy: none Laceration Description: None - Complications Delivery complications: none - Disposition Mom disposition: stable in LDR disposition: stable in LDR - Comments Comments: Pt is s/p without incident. No lacerations. Spontaneous delivery of normal placenta. EBL 150 cc Pt tolerated well.
[2017-03-17] MEDS ORDERED: Acetaminophen 325 MG TABLET PO PRN (17:18)
[2017-03-17] MEDS ORDERED: Oxytocin 20 units/ LR 1000 mL 20 UNIT/1,000 ML BAG IVC SCH (17:18)
[2017-03-17] MEDS ORDERED: Measles/Mumps/Rubella Vacc 0.5 ML VIAL SQ PRN (17:18)
[2017-03-17] MEDS: Ibuprofen 600 MG TABLET PO PRN ×2 (17:29→23:41)
[2017-03-17] MEDS ORDERED: *HR* Promethazine 25 MG/ML VIAL IVP ONE (17:41)
[2017-03-18 05:29] LABS: Basophils % 0.3 %; Eosinophils # 0.1 K/mcL (0.0-0.6); Eosinophils % 0.7 %; Hematocrit 27.1 % (35.3-44.9); Hemoglobin 8.6 g/dL (11.5-15.4); Lymphocytes # 2.7 K/mcL (0.6-4.6); Lymphocytes % 21.4 %; Mean Corpuscular HGB Conc 31.7 g/dL (31.6-35.5); Mean Corpuscular Hemoglobin 24.9 pg (28.0-33.3); Mean Corpuscular Volume 78.3 fL (83.0-100.0); Mean Platelet Volume 9.8 fL (9.4-12.4); Monocytes # 0.6 K/mcL (0.0-1.3); Monocytes % 5.1 %; Neutrophils # 8.9 K/mcL (1.6-8.9); Platelet Count 316 K/mcL (140-400); Red Blood Count 3.46 M/mcL (3.82-4.97); Red Cell Distribution Width 14.3 % (11.5-14.5); Segmented Neutrophils % 71.5 %
--- NOTE | 2017-03-18 08:08 | OB/GYN Progress Note ---
Date of Encounter: 03/18/17 Time of Encounter: 08:00 - Assessment and Plan (1) Status post vaginal delivery Current Visit: Yes Status: Acute (2) Family planning Current Visit: Yes Status: Acute We will prepare the patient for a bilateral partial salpingectomy Subjective - Subjective Interval history: Patient doing well this morning minimal pain and minimal bleeding. Still wanted to proceed on with a tubal ligation. The risks and benefits of tubal ligation was explained to patient with failure rate of 5-8 per thousand with increased risk of ectopic if was to occur. She has been nothing by mouth since midnight Patient reports: appetite normal, voiding normally, pain well controlled [place]: doing well Objective - Latest Vital Signs Latest vital signs: Vital Signs Temp Pulse Resp BP Pulse Ox 03/18/17 03:18 97.6 F 70 14 120/76 97 03/17/17 20:45 98.2 F 65 18 129/83 97 03/17/17 19:45 98.5 F 52 16 139/88 98 03/17/17 19:07 153/88 03/17/17 18:45 98.6 F 62 16 135/93 98 Intake and Output 03/17/17 03/18/17 03/18/17 23:59 07:59 15:59 Intake Total 600 / 600 Output Total 700 / 700 1000 / 1000 Balance -100 / -100 -1000 / -1000 Intake: Oral 600 / 600 Output: Urine 700 / 700 1000 / 1000 Other: Weight 80.8 kg 79.9 kg Patient Weight 03/18/17 23:59 Weight 79.9 kg - Exam Lungs: bilateral: normal Chest: Normal S1, Normal S2 Extremities: Present: normal Abdomen: Present: normal appearance, soft Uterus: Present: normal, firm Uterus Position: At Umbilicus - Labs Labs: Laboratory Results - last 24 hr 03/17/17 03/18/17 09:07 05:02 WBC 8.8 12.4 H RBC 3.67 L 3.46 L Hgb 9.1 L 8.6 L Hct 28.5 L 27.1 L MCV 77.7 L 78.3 L MCH 24.8 L 24.9 L MCHC 31.9 31.7 RDW 14.2 14.3 Plt Count 375 316 MPV 9.6 9.8 Immature Gran % 1.1 1.0 Seg Neutrophils % 70.4 71.5 Lymphocytes % 21.8 21.4 Monocytes % 5.8 5.1 Eosinophils % 0.6 0.7 Basophils % 0.3 0.3 Neutrophils # 6.2 8.9 Lymphocytes # 1.9 2.7 Monocytes # 0.5 0.6 Eosinophils # 0.1 0.1 Basophils # 0.0 0.0
[2017-03-18 08:19] VITALS: BP 120/80
[2017-03-18] MEDS ORDERED: Prenatal Vit/FA 1 EACH TABLET PO SCH (09:00)
[2017-03-18] MEDS: Ibuprofen 600 MG TABLET PO PRN (09:59)
--- NOTE | 2017-03-18 14:17 | Discharge Summary ---
Date of Encounter: 03/18/17 Time of Encounter: 14:00 - Discharge Diagnosis (1) Status post vaginal delivery Priority: Primary Status: Acute (2) Family planning Priority: Secondary Status: Acute - Discharge Medications Prescriptions: Ibuprofen [Motrin] 600 mg PO Q6HR PRN #30 tablet PRN Reason: Cramping Ferrous Sulfate 325 mg PO DAILY #30 tablet Home Medications: Amoxicillin Susp [Amoxil] 11 ml PO BID #220 ml 03/11/17 [Rx] Famotidine [Heartburn Prevention] 20 mg PO DAILY 03/11/17 [History] HydrOXYzine Pamoate [Vistaril] 25 mg PO DAILY 03/11/17 [History] Ferrous Sulfate 325 mg PO DAILY #30 tablet 03/18/17 [Rx] Ibuprofen [Motrin] 600 mg PO Q6HR PRN #30 tablet 03/18/17 [Rx] Allergies/Adverse Reactions: Allergies No Known Allergies Allergy (Verified 03/15/17 23:15) Data Procedures and tests throughout hospitalization: Laboratory Tests 03/17/17 03/18/17 09:07 05:02 WBC 8.8 12.4 H RBC 3.67 L 3.46 L Hgb 9.1 L 8.6 L Hct 28.5 L 27.1 L MCV 77.7 L 78.3 L MCH 24.8 L 24.9 L MCHC 31.9 31.7 RDW 14.2 14.3 Plt Count 375 316 MPV 9.6 9.8 Immature Gran % 1.1 1.0 Seg Neutrophils % 70.4 71.5 Lymphocytes % 21.8 21.4 Monocytes % 5.8 5.1 Eosinophils % 0.6 0.7 Basophils % 0.3 0.3 Neutrophils # 6.2 8.9 Lymphocytes # 1.9 2.7 Monocytes # 0.5 0.6 Eosinophils # 0.1 0.1 Basophils # 0.0 0.0 Labs on day of discharge: Labs from last 24 hours 03/18/17 05:02 WBC 12.4 H RBC 3.46 L Hgb 8.6 L Hct 27.1 L MCV 78.3 L MCH 24.9 L MCHC 31.7 RDW 14.3 Plt Count 316 MPV 9.8 Immature Gran % 1.0 Seg Neutrophils % 71.5 Lymphocytes % 21.4 Monocytes % 5.1 Eosinophils % 0.7 Basophils % 0.3 Neutrophils # 8.9 Lymphocytes # 2.7 Monocytes # 0.6 Eosinophils # 0.1 Basophils # 0.0 Date of admission: 03/17/17 08:08 Primary care physician: Argelia Gore CNP Consults: 03/17/17 17:18 Consult to Heavy Mobile Equipment Operator [CONS] Routine Comment: Vaginal delivery, consult needed Discharging clinician: Heribe Avendaño Anticipated date of discharge: 03/18/17 - Patient Status Disposition: Home, Self-Care Condition: Good Functional capacity at discharge: independent ambulation Overall status at discharge: patient is progressing back to baseline - Discharge Instructions Follow Up With: Argelia Gore CNP [Primary Care Provider] - Ganga Lockhart MD [Partnered Physician] - - Diet and Activity Activity: increase activity as tolerated Diet: advance to your usual diet Hospital Course Procedures: Vaginal delivery Reason for admission: induction of labor Delivery: Episiotomy: none Laceration: none Other procedures: none complications: none Discharge diagnosis: IUP at term delivered Hospital course: Patient is a 26-year-old 3 para 2 at 39 weeks who had presented for induction of labor secondary to term . She underwent a normal spontaneous vaginal delivery without complications. Patient was wanting a bilateral partial salpingectomy however due to the weekend and surgical schedule it was difficult to get the patient worked in a timley fashion. Patient did not want to have to wait and decided she would schedule as an outpatient. Patient's hospital course was unremarkable she was discharged home on day #1 with a prescription for Motrin 800 mg and iron sulfate 325 one a day. She will be scheduled for laparoscopic tubal ligation in approximately 5-6 weeks. Condition at the time of discharge are stable. Time Attestation: Total time spent providing and/or coordinating discharge services: Exam - Constitutional Vitals: Temp Pulse Resp BP Pulse Ox 97.7 F 60 16 120/80 97 03/18/17 07:45 03/18/17 07:45 03/18/17 08:00 03/18/17 07:45 03/18/17 03:18 General appearance IM: A&O X 3 - Respiratory Respiratory exam: Present: CTAB - Cardiovascular Cardiovascular exam IM: Present: RRR - GI/Abdominal GI/Abdominal exam IM: normal bowel sounds - Rectal Rectal exam: deferred - Uterus Position: At Umbilicus
== END 2017-03-18 17:13 | disposition home or self-care (01) | DRG 560 ==
LOC: 1NENULAB 08:08 → 1NENUOBS 18:39
PROVIDERS: ADMIT Obstetrics & Gynecology; ATTEND Obstetrics & Gynecology